=== PATIENT | female | born 1945 ===

== ENCOUNTER 2018-01-16 07:15 | Inpatient (IN) | payer OTHER ==
[2018-01-16] MEDS ORDERED: CARBATROL200 MG (15:47)
[2018-01-16] MEDS ORDERED: LISINOPRIL20 MG (15:48)
[2018-01-16] MEDS ORDERED: MULTIVITAMINA (15:49)
[2018-01-21] MEDS ORDERED: MULTIVITAMINS1 EAC9 PO (18:30)
[2018-01-24] MEDS ORDERED: PERCOCET 5-3251 EACH PO (09:05)
[2018-01-24] MEDS ORDERED: CEFADROXIL500 MG PO (09:05)
[2018-01-24] MEDS ORDERED: ELIQUIS2.5 MG PO (09:05)
== END 2018-01-24 11:13 | disposition home health service (06) | DRG 470 ==
LOC: ADM 07:15 → EDSTATUS 07:15 → SURH 01-21 05:17 → O/R 01-21 05:17 → SURH 01-21 07:15
PROVIDERS: Orthopaedic Surgery
PROC: 0MNP0ZZ Release Left Knee Bursa and Ligament, Open Approach (ICD-10-PCS; 2018-01-21)
PROC: 0SRD0J9 Replacement of Left Knee Joint with Synthetic Substitute, Cemented, Open Approach (ICD-10-PCS; principal; 2018-01-21 10:00)
DX: M17.12 Unilateral primary osteoarthritis, left knee (principal); G40.802 Other epilepsy, not intractable, without status epilepticus; D62 Acute posthemorrhagic anemia; I10 Essential (primary) hypertension; M81.0 Age-related osteoporosis without current pathological fracture